=== PATIENT | female | born 1950 | race Caucasian/White ===

== ENCOUNTER 2017-05-17 10:36 | Day surgery (SDC) | payer MEDICARE, OTHER ==
[2017-05-17] MEDS ORDERED: LIDOCAINE 2% MDV (20MG/ML) 20ML VIAL IV ONE (10:37)
[2017-05-17] MEDS ORDERED: PROPOFOL 10 MG/ML VIAL IV ONE (10:37)
[2017-05-17] MEDS ORDERED: ONDANSETRON HCL IV 4 MG/2 ML VIAL IVP ONE (10:37)
--- NOTE | 2017-05-19 11:10 | Operative Note ---
DATE OF SURGERY: 05/17/2017 OPERATION: COLONOSCOPY to the cecum with cold snare polypectomy. INDICATION: Prior history of adenomatous polyp. The patient returns at this time for surveillance. Last examination was approximately 5 years ago. ANESTHESIA: Intravenous sedation was administered by the department of anesthesiology and included Diprivan titrated to effect. PROCEDURE: Following informed consent from this alert individual including a discussion of the risks and benefits of the procedure and an opportunity for the patient to ask questions, the patient was in the left lateral decubitus position. A digital rectal examination was performed. No abnormalities were noted. Following this, the Olympus [id number] video colonoscope was inserted into the rectum without resistance. The rectal mucosa had a normal appearance with normal folds and distensibility. The sigmoid colon was cannulated and found to have a few scattered diverticula. The colonoscope was further advanced up through the bowel to the level of the cecum without much difficulty. Throughout the bowel the mucosa appeared normal, the folds were normal, and the bowel was fairly well distensible. There was some focal spasm noted throughout the colon. The cecum was defined by noting the appendiceal orifice and ileocecal valve. The colon preparation was good. From the base of the cecum, the colonoscope was then withdrawn. In the mid ascending colon there was a 5-6 mm sessile polyp noted which was removed with cold snare polypectomy and suctioned through the colonoscope into a collection trap. There were also a few scattered diverticula noted in the ascending colon. The colonoscope was then further withdrawn through the bowel. No additional changes were appreciated. Retroflexion in the rectum endoscopically unremarkable. The instrument was removed. The patient tolerated the procedure well and was returned to the recovery area in stable condition. IMPRESSION: 1. A 5-6 mm sessile polyp removed from the ascending colon with cold snare polypectomy. 2. Diverticulosis in the ascending colon and sigmoid colon. RECOMMENDATIONS: The patient was advised she should receive a copy of her pathology report at home in the next 2-3 weeks. If not, she was asked to call my office to review the results of testing today. Further recommendations forthcoming pending those results. Followup will also be with Dr. Marrero. As always, thank you for allowing me to participate in the care of your patient. CC: Antonia [email or web address]
== END 2017-05-17 13:05 | disposition home or self-care (01) ==
LOC: HOP 10:36
PROVIDERS: ATTEND Internal Medicine Gastroenterology
DX: Z12.11 Encounter for screening for malignant neoplasm of colon (principal); Z86.010 Personal history of colon polyps; D12.2 Benign neoplasm of ascending colon; I10 Essential (primary) hypertension; K57.30 Diverticulosis of large intestine without perforation or abscess without bleeding
CPT/HCPCS: 45385; 00811; 88305; J2405